=== PATIENT | male | born 1955 | race American Indian/Alaskan Native ===

== ENCOUNTER 2020-02-26 14:39 | Emergency (ER) | payer MEDICARE ==
[2020-02-26] MEDS ORDERED: HYDROmorphone 1 MG/1 ML INJ IV ONE ×2 (14:53→16:17)
[2020-02-26] MEDS ORDERED: methylPREDNISolone Sod Succinate 125 MG/2 ML INJ IV ONE (14:53)
[2020-02-26] MEDS ORDERED: IPRATROPIUM/ALBUTEROL SULFATE 3 ML AMPUL.NEB IH ONE (14:53)
[2020-02-26] MEDS ORDERED: ONDANSETRON 4 MG/2 ML INJ IV ONE (14:53)
--- NOTE | 2020-02-26 15:12 | Emergency Department Report ---
ED Shortness of Breath HPI - General Chief Complaint: Nosebleed Stated Complaint: DIFFICULTY BREATHING Time Seen by Provider: 02/26/20 14:52 Source: EMS Mode of arrival: Stretcher Limitations: No Limitations - History of Present Illness Initial Comments: 64-year-old male with a past medical history of COPD and CHF presents to the hospital with postoperative epistaxis and shortness of breath. This morning patient had deviated nasal septal surgery with ENT doctor affiliated with [facility]. In preparation for surgery he discontinued his Plavix and diuretic for the past 1 week. He also did not take his a.m. blood pressure medication prior to surgery. On the way home yesterday he developed some intermittent dripping epistaxis which continues at this time. He also developed worsening shortness of breath. Patient states he was short of breath even prior to surgery was experiencing wheezing that improved with bronchodilator use. Patient denies cough, chest pain or fever. He does complain of postoperative nasal pain. [facility] ENT Dr. Jamie Parsons - Related Data Previous Rx's Medication Instructions Recorded Last Taken Type Prednisone [predniSONE 10 mg 10 mg PO .TAPER #1 tab.ds.pk 02/26/20 Unknown Rx (6-Day Pack, 21 Tabs)] Allergies Allergy/AdvReac Type Severity Reaction Status Date / Time No Known Allergies Allergy Unverified 02/26/20 14:59 ED Review of Systems ROS: Stated complaint: DIFFICULTY BREATHING Other details as noted in HPI Comment: All other systems reviewed and negative ED Past Medical Hx - Medications Home Medications: Home Medications Medication Instructions Recorded Confirmed Last Taken Type Prednisone [predniSONE 10 mg 10 mg PO .TAPER #1 tab.ds.pk 02/26/20 Unknown Rx (6-Day Pack, 21 Tabs)] ED Physical Exam - General Limitations: No Limitations - Other Other exam information: General: No acute distress Head: Atraumatic Eyes: normal appearance ENT: Mild epistasis with intermittent dripping from each nostril Neck: Normal appearance, no midline tenderness Chest: Right coarse breath sounds right posterior base CV: Regular rate and rhythm Abdomen: Soft, normal bowel sounds, nontender, nondistended, no rebound or guarding Back: Normal inspection Extremity: Normal inspection, full range of motion, no edema, calf tenderness, or leg asymmetry Neuro: Alert O x 3, no facial asymmetry, speech clear, no gross motor sensory deficit Psych: Appropriate behavior Skin: No rash ED Course Vital Signs 02/26/20 02/26/20 02/26/20 15:49 16:13 16:35 Temperature Pulse Rate 75 73 Pulse Rate [ 76 Anterior Bilateral Throughout] Respiratory 20 Rate Respiratory 16 Rate [Anterior Bilateral Throughout] Blood Pressure 167/101 Blood Pressure 163/96 [Right] O2 Sat by Pulse 93 Oximetry 02/26/20 02/26/20 02/26/20 17:14 17:15 17:31 Temperature Pulse Rate 71 69 71 Pulse Rate [ Anterior Bilateral Throughout] Respiratory 15 14 11 L Rate Respiratory Rate [Anterior Bilateral Throughout] Blood Pressure Blood Pressure [Right] O2 Sat by Pulse 91 90 87 Oximetry 02/26/20 02/26/20 02/26/20 17:45 18:00 18:15 Temperature Pulse Rate 73 81 74 Pulse Rate [ Anterior Bilateral Throughout] Respiratory 11 L 17 16 Rate Respiratory Rate [Anterior Bilateral Throughout] Blood Pressure 156/90 156/90 Blood Pressure [Right] O2 Sat by Pulse 88 88 90 Oximetry 02/26/20 02/26/20 02/26/20 18:31 18:45 18:54 Temperature Pulse Rate 92 H Pulse Rate [ 89 Anterior Bilateral Throughout] Respiratory 14 Rate Respiratory 22 Rate [Anterior Bilateral Throughout] Blood Pressure 156/90 158/88 Blood Pressure [Right] O2 Sat by Pulse 87 92 Oximetry 02/26/20 19:42 Temperature 97.9 F Pulse Rate Pulse Rate [ Anterior Bilateral Throughout] Respiratory Rate Respiratory Rate [Anterior Bilateral Throughout] Blood Pressure Blood Pressure [Right] O2 Sat by Pulse Oximetry - Consultations Consultation #1: 02/26/20 16:31 I discussed case with patient's ENT physician Dr. Jamie Orta. He states the surgery was uneventful. Patient not complain of shortness of breath prior to surgical procedure and received medical clearance prior to surgery. Surgery was uneventful without any complications and no issues with reemergence from anesthesia. He states that patient small incisions at the front of his nose which could be the source of bleeding. Patient does not currently have any gauze dressing at his nose. Dr. Parsons states that patient is supposed to have a mustache dressing with 4 x [address] that he changes every hour. Otherwise patient will continue to rub and disturb area of incision causing continued bleeding. He also recommends Afrin nasal sprays and ice packs to assist in vasoconstriction as well as blood pressure reduction He is available for reconsultation if needed. ED Medical Decision Making - Lab Data Result diagrams: 02/26/20 15:37 02/26/20 15:37 - EKG Data -: EKG Interpreted by Me EKG shows normal: sinus rhythm, intervals (pr 229), ST-T waves (no semi) Rate: normal (76) - Radiology Data Radiology results: report reviewed CHEST 1 VIEW INDICATION: sob. COMPARISON: None FINDINGS: Support devices: None. Heart: Within normal limits. Lungs/Pleura: No acute air space or interstitial disease. Additional findings: None. IMPRESSION: No acute findings. - Medical Decision Making Patient presents to the hospital with postoperative epistaxis, uncontrolled hypertension secondary to not taking his BP medications, and shortness of breath. Patient's blood pressure was improved with labetalol. Once blood pressure was improved patient did receive intranasal Afrin sprays followed by a mustache dressing under his nose supported by the device provided by his ENT doctor. Patient also applied ice packs to the nasal bridge which seemed to stop his epistaxis. After several hours of observation the gauze has not soaked through with blood and he is no longer having a dripping sensation. Nose pain and sinus headache improved after Dilaudid 1.5mg. During ED treatment patient also received 1 dose of Solu-Medrol and multiple bronchodilators for presumed COPD exacerbation. Patient does not endorse chest pain and has EKG showing normal sinus rhythm with prolonged RI without ischemic findings. Patient's chest x-ray is normal without infiltrate or edema. Patient also has a normal BNP. Other lab work is unremarkable with exception of mild leukocytosis which could be postoperative related. Patient does not have a fever or symptoms of infection. Patient saturation on room air noted to fluctuate between 88% while sleeping to 96% when he takes deep breaths. He says this is normal for him. He states he has a pulse oximetry at home to monitor his oxygen and it typically drops to the high 80s and improves to the mid 90s with deep inspiration. Patient also has 2 L of nasal cannula oxygen to use at home as needed. I ambulated with the patient in the department at the end of his treatment and he reports feeling well and does not report dyspnea with exertion. His saturation when connected back to the monitor was 91 but improved to 96% with deep inspiration (pt states this is his baseline) Since patient does use a nasal cannula at home as needed and currently has gauze covering his nostrils he was provided a Ventimask to provide 24% O2 equivalent to the 2 L nasal cannula he takes at home since he is forced to mouth breath and also nonhumified o2 can be drying to nasal passages and exacerbate epistaxis. Plus pt may use Nasal cannula at the mouth. He also was provided the albuterol handheld oral delivery device since he tolerates that better than the facial mask at this time given that his nose is covered with gauze. pt offered admission but insists his symptoms are better and he does look better with good vital signs prior to d/c. steroids will be prescribed pt has pain med and antibiotics prescribed by his ENT doctor to take at home pt instructed to return if symptoms worsen. Critical Care Time: No Critical care attestation.: If time is entered above; I have spent that time in minutes in the direct care of this critically ill patient, excluding procedure time. ED Disposition Clinical Impression: COPD exacerbation, Postsurgical epistaxis, Post-operative pain, Uncontrolled hypertension Disposition: TO HOME OR SELFCARE Is pt being admited?: No Condition: Stable Instructions: Epistaxis (ED), Chronic Obstructive Pulmonary Disease (ED), Hypertension (ED) Additional Instructions: Take the medication as prescribed. Follow with the ENT doctor and vice president planning. Follow your recent discharge instructions provided by the ENT doctor. Return if symptoms worsen as indicated by your discharge instructions. Use the handheld oral bronchodilator device provided Use the Ventimask provided for oxygen delivery Prescriptions: Prednisone [predniSONE 10 mg (6-Day Pack, 21 Tabs)] 10 mg PO .TAPER #1 tab.ds.pk Referrals: PRIMARY CARE,MD [Primary Care Provider] - 3-5 Days your, vice president planning [Other] - 3-5 Days Time of Disposition: 19:51
--- NOTE | 2020-02-26 15:17 | XRay Report ---
CHEST 1 VIEW INDICATION: sob. COMPARISON: None FINDINGS: Support devices: None. Heart: Within normal limits. Lungs/Pleura: No acute air space or interstitial disease. Additional findings: None. IMPRESSION: No acute findings. Signer Name: Benigno Ariza Jr, MD Signed: 02/26/2020 3:12 PM Workstation Name: [id number]
[2020-02-26 16:06] LABS: Basophils % (Auto) 0.2 % (0.0-1.8); Hematocrit 44.1 % (35.5-45.6); Hemoglobin 15.6 gm/dl (11.8-15.2); Lymphocytes # (Auto) 1.3 K/mm3 (1.2-5.4); Mean Corpuscular HGB Conc 35 % (32-34); Mean Corpuscular Volume 95 fl (84-94); Monocytes # (Auto) 0.1 K/mm3 (0.0-0.8); Monocytes % (Auto) 0.8 % (0.0-7.3); Platelet Count 227 K/mm3 (140-440); Red Blood Count 4.66 M/mm3 (3.65-5.03)
[2020-02-26 16:16] LABS: BUN/Creatinine Ratio 11; Blood Urea Nitrogen 10 mg/dL (9-20); Calcium 9.4 mg/dL (8.4-10.2); Hemolysis Index 5
[2020-02-26 16:19] LABS: INR 1.03 (0.87-1.13)
[2020-02-26 16:20] LABS: Partial Thromboplastin Time 29.9 Sec. (24.2-36.6)
[2020-02-26] MEDS ORDERED: OXYMETAZOLINE 0.05% NASAL SPRAY NS ONE (16:35)
[2020-02-26] MEDS ORDERED: ALBUTEROL 2.5 MG/3 ML NEBU IH ONE (18:07)
[2020-02-26 20:24] VITALS: BP 156/90
== END 2020-02-26 21:41 ==
LOC: ED 14:39
DX: J44.1 Chronic obstructive pulmonary disease with (acute) exacerbation (principal); G89.18 Other acute postprocedural pain; J34.89 Other specified disorders of nose and nasal sinuses; R04.0 Epistaxis; I10 Essential (primary) hypertension; Z79.899 Other long term (current) drug therapy
CPT/HCPCS: 36415; 71045; 80048; 83880; 85025; 85610; 85730; 93005; 94640; 96374; 96375; 96376; 99285; J1170; J2405; J2930; 94644